=== PATIENT | male | born 1955 | race Caucasian/White ===

== ENCOUNTER 2020-11-12 03:39 | Inpatient (IN) | payer MEDICARE, OTHER ==
[2020-11-12 04:17] LABS: BASOPHIL 0.3 % (0-2); EOSINOPHIL 0.5 % (0-7); HCT 37.7 % (42.0-52.0); LYMPHOCYTE 3.8 % (15-48); MCH 25.2 pg (25.0-31.0); MCHC 29.2 g/dL (32.0-36.0); MCV 86.3 fL (78.0-100.0); MONOCYTE 6.3 % (0-12); MPV 10.9 fL (6.0-9.5); NEUTROPHIL 88.8 % (41-80); NRBC 0; PLT 215 K/uL (150-400); RBC 4.37 M/uL (4.70-6.00); RDW 16.9 % (11.5-14.0); WBC 7.4 K/uL (4.0-10.5)
[2020-11-12 04:38] LABS: ALBUMIN 2.9 g/dL (3.4-5.0); BILIRUBIN - TOTAL 0.4 mg/dL (0.2-1.0); BUN/CREAT RATIO (CALC) 18.8 RATIO; CREATININE 3.03 mg/dL (0.67-1.17); GLOBULIN (CALCULATION) 4.5 g/dL; POTASSIUM 4.5 mmol/L (3.5-5.1); TOTAL PROTEIN 7.4 g/dL (6.4-8.2)
[2020-11-12 04:53] LABS: PRO-BNP > 35000 pg/mL (<125)
[2020-11-12 06:14] LABS: BILIRUBIN NEGATIVE (NEGATIVE); BLOOD 1+ Ery/uL (NEGATIVE); CLARITY CLEAR (CLEAR); COLOR YELLOW (YELLOW); GLUCOSE (U) NORMAL (NORMAL); LEUKOCYTES NEGATIVE Leu/uL (NEGATIVE); NITRITE NEGATIVE (NEGATIVE); PROTEIN 3+ mg/dL (NEGATIVE); UROBILINOGEN 0.2 mg/dL (0.2-1.0); pH 5.5 (5.0-9.0)
[2020-11-12 06:28] LABS: BACTERIA TRACE; URINARY RBC RARE
[2020-11-12] MEDS ORDERED: ASPIRIN81 MG PO (07:59)
[2020-11-12] MEDS ORDERED: ATORVASTATIN CA80 MG PO (08:07)
[2020-11-12] MEDS ORDERED: COZAAR100 MG PO (08:08)
[2020-11-12] MEDS ORDERED: GLUCOTROL10 MG PO (08:08)
[2020-11-12] MEDS ORDERED: METFORMIN HCL500 MG PO (08:09)
[2020-11-12] MEDS ORDERED: LOPRESSOR50 MG PO (08:10)
[2020-11-12] MEDS ORDERED: PROTONIX 40MG T40 MG PO (08:10)
[2020-11-12] MEDS ORDERED: ALDACTONE25 MG PO (08:11)
[2020-11-12] MEDS ORDERED: DEMADEX20 MG PO (08:12)
[2020-11-12] MEDS ORDERED: LANTUS **100 UNITS/ SC (08:13)
[2020-11-12] MEDS ORDERED: XALATAN2.5 ML OU (08:15)
[2020-11-13 06:34] LABS: BASOPHIL 0.4 % (0-2); EOSINOPHIL 0 % (0-7); HCT 39.2 % (42.0-52.0); HGB 11.6 g/dl (13.2-18.0); LYMPHOCYTE 5.3 % (15-48); MCH 25.5 pg (25.0-31.0); MCHC 29.6 g/dL (32.0-36.0); MCV 86.2 fL (78.0-100.0); MONOCYTE 10.4 % (0-12); MPV 11.4 fL (6.0-9.5); NEUTROPHIL 83.5 % (41-80); NRBC 0; PLT 227 K/uL (150-400); RBC 4.55 M/uL (4.70-6.00); RDW 16.9 % (11.5-14.0)
[2020-11-13 07:09] LABS: BUN/CREAT RATIO (CALC) 19.4 RATIO; CREATININE 3.14 mg/dL (0.67-1.17); POTASSIUM 4.7 mmol/L (3.5-5.1)
[2020-11-13 07:23] LABS: PRO-BNP > 35000 pg/mL (<125)
[2020-11-13 07:50] LABS: TOTAL CELL COUNT 100
[2020-11-13 07:53] LABS: NEUTROPHILS(M) 80 % (41-80)
[2020-11-13 07:54] LABS: ANISOCYTOSIS MODERATE; BAND 2 % (0-10); ECHINOCYTES (BURR CELLS) 2+; LYMPHOCYTE(M) 10 % (15-48); MONOCYTE(M) 6 % (0-12); PROMYELOCYTE 2
[2020-11-13 07:55] LABS: PLATELET ESTIMATE NORMAL; PLATELET MORPHOLOGY NORMAL
[2020-11-14 04:17] LABS: BILIRUBIN NEGATIVE (NEGATIVE); BLOOD TRACE-LYSED Ery/uL (NEGATIVE); CLARITY CLEAR (CLEAR); COLOR YELLOW (YELLOW); GLUCOSE (U) NORMAL (NORMAL); LEUKOCYTES NEGATIVE Leu/uL (NEGATIVE); NITRITE NEGATIVE (NEGATIVE); PROTEIN 2+ mg/dL (NEGATIVE); UROBILINOGEN 0.2 mg/dL (0.2-1.0); pH 5.5 (5.0-9.0)
[2020-11-14 04:33] LABS: SQUAMOUS EPITHELIAL CELLS RARE
[2020-11-14 06:10] LABS: CREATININE 3.43 mg/dL (0.67-1.17); POTASSIUM 4.6 mmol/L (3.5-5.1)
[2020-11-14] MEDS ORDERED: ELIQUIS2.5 MG PO (15:20)
[2020-11-14] MEDS ORDERED: PROSCAR5 MG PO (15:20)
[2020-11-14] MEDS ORDERED: ASPIRIN EC81 MG PO (15:20)
[2020-11-14] MEDS ORDERED: TAMSULOSIN HCL0.4 MG PO (15:20)
[2020-11-14] MEDS ORDERED: KEFLEX250 MG PO (15:20)
[2020-11-14] MEDS ORDERED: TOPROL XL 50 MG50 MG PO (15:20)
[2020-11-14] MEDS ORDERED: CEPHALEXIN500 MG PO (17:20)
[2020-11-14] MEDS ORDERED: NEURONTIN300 MG PO (17:21)
[2020-11-15 06:58] LABS: BUN/CREAT RATIO (CALC) 23.7 RATIO; CREATININE 3.34 mg/dL (0.67-1.17); POTASSIUM 4.4 mmol/L (3.5-5.1)
--- NOTE | 2020-11-15 09:23 | NUR ---
TALKED WITH WOUND CARE ABOUT SEEING PATIENT FOR WOULDS, SHE STATED THAT PATIENT IS NONCOMPLIANT AND WILL TALK WITH DR ESPINOZA
--- NOTE | 2020-11-15 09:33 | NUR ---
PT SEEN BY [facility] AT [facility] ON Sunday11/08/20. DR. ADRIAN SEEN PATIENT AND HAD ORDERED COMPRESSION WRAPS FOR BLE. PATIENT KNOWN TO BE NONADHERENT WITH MEDS AND TREATMENTS. PATIENT HAD APPOINTMENT FOR 11/15 TO UNWRAP BLE AND TO SEE MD. PATIENT CAME TO ER WITH NO COMPRESSION WRAPS ON. PATIENT WITH MULTIPLE VENOUS ULCERS TO BLE. SEROUS DRAINAGE IN LARGE AMOUNTS COMING FROM MULTIPLE AREAS. BLE RED. FEET COOL. + PEDAL PULSES BUT DIMINISHED. RECOMMENDATIONS FOR PATIENT FOR HH TO HELP WITH NONAHERENCE AND TO USE AQUACEL AG AND TYREL BANDAGE FROM TOE TO KNEE AFTER CLEANSING.
[2020-11-15 17:09] LABS: ANTIMYELOPEROXIDASE (MPO) ABS <9.0 U/mL (0.0-9.0); ANTIPROTEINASE 3 (PR-3) ABS <3.5 U/mL (0.0-3.5); ATYPICAL PANCA <1:20 titer (Neg:<1:20); CYTOPLASMIC (C-ANCA) <1:20 titer (Neg:<1:20); PERINUCLEAR (P-ANCA) <1:20 titer (Neg:<1:20)
--- NOTE | 2020-11-16 09:05 | NUR ---
Mr. Ruby was discharged home with his spouse on 11/15. [facility] and [facility] are on diversion. [facility] declined based on insurance. After discussing with Dr. Vegas, a referral was made to [facility]. - A referral was made to [facility] for a hospital bed.
== END 2020-11-15 17:46 | disposition home health service (06) | DRG 291 ==
LOC: FER 03:39 → FMS 05:51
PROVIDERS: Allergy & Immunology Allergy; Emergency Medicine; Hospitalist; Internal Medicine Cardiovascular Disease; ADMIT Internal Medicine
DX: I13.0 Hypertensive heart and chronic kidney disease with heart failure and stage 1 through stage 4 chronic kidney disease, or unspecified chronic kidney disease (principal); I50.33 Acute on chronic diastolic (congestive) heart failure; N17.9 Acute kidney failure, unspecified; I47.2 Ventricular tachycardia; J44.1 Chronic obstructive pulmonary disease with (acute) exacerbation; L97.929 Non-pressure chronic ulcer of unspecified part of left lower leg with unspecified severity; L97.919 Non-pressure chronic ulcer of unspecified part of right lower leg with unspecified severity; I50.84 End stage heart failure; Z20.822 Contact with and (suspected) exposure to COVID-19; N18.9 Chronic kidney disease, unspecified; E11.22 Type 2 diabetes mellitus with diabetic chronic kidney disease; E11.42 Type 2 diabetes mellitus with diabetic polyneuropathy; E11.51 Type 2 diabetes mellitus with diabetic peripheral angiopathy without gangrene; E11.622 Type 2 diabetes mellitus with other skin ulcer; E78.5 Hyperlipidemia, unspecified; I25.5 Ischemic cardiomyopathy; I25.10 Atherosclerotic heart disease of native coronary artery without angina pectoris; Z95.810 Presence of automatic (implantable) cardiac defibrillator; Z87.891 Personal history of nicotine dependence; I25.2 Old myocardial infarction; Z98.890 Other specified postprocedural states; Z79.82 Long term (current) use of aspirin; Z79.4 Long term (current) use of insulin; Z79.899 Other long term (current) drug therapy
CPT/HCPCS: 36415; 36600; 71045; 71046; 80048; 80053; 81001; 82595; 82803; 82962; 83036; 83520; 83605; 83880; 84145; 84484; 85025; 85730; 86038; 86160; 86162; 86256; 87040; 93005; 93922; 94640; 94664; 94760; J1170; J1644; J1940; J2270; J2930; U0002